=== PATIENT | male | born 1990 | race Caucasian/White ===

== ENCOUNTER 2024-10-17 23:20 | Emergency (ER) | payer OTHER ==
[~2024-10-17] VITALS: Ht 175.3 cm; Wt 77.0 kg
--- NOTE | 2024-10-18 00:07 | ED.PDOC ---
History of Present Illness HPI Comments 34-year-old male with unknown past medical history, presents to ED by ambulance for drug intoxication x2 hours. EMS reports that the patient was at [employer] and they received a call that patient was dancing between the aisles. EMS reported that the patient was complaining of abdominal pain. They report that they could not get any more information from the patient. Patient did not admit to any drug use, however appears intoxicated. EMS states that vitals have been stable. There has been no vomiting. Patient has not exhibited any signs of pain. Patient is not giving information during my exam. EMS reports patient is homeless. Chief Complaint: Abdominal Pain Time Seen by MD: 23:51 Reviewed Notes: Nurses Notes, Medications, Allergies Allergies: Coded Allergies: NO KNOWN ALLERGIES (Unverified , 10/18/24) Home Meds Active Scripts Azithromycin (Azithromycin) 250 Mg Tab, 250 MG PO DAILY MDD 500 for 5 Days, #6 TAB 0 Refills 2 TABLETS ORALLY ON DAY ONE, THEN 1 TABLET ORALLY DAILY FOR 4 DAYS Prov:YEYO QUINTANILLA [facility] 10/18/24 Mode of Arrival: EMS Past Medical History PAST MEDICAL HISTORY: Unobtainable Surgical History: Unobtainable Family History Family History: Unobtainable Social History Smoker: Unobtainable Drugs: Unobtainable Lives In: Unobtainable Constitutional: denies: chills, diaphoresis, fatigue, fever, malaise, sweats, weakness, others EENTM: denies: blurred vision, double vision, ear bleeding, ear discharge, ear drainage, ear pain, ear ringing, eye pain, eye redness, hearing loss, mouth pain, mouth swelling, nasal discharge, nose bleeding, nose congestion, nose pain, photophobia, tearing, throat pain, throat swelling, voice changes, others Gastrointestinal: reports: abdominal pain Unable to Obtain due to: Other (Patient not answering questions) Physical Exam General Appearance: No Apparent Distress (Patient appears to be intoxicated during exam, not answering any questions, however maintaining airway.), Normal HEENT: PERRL/EOMI Neck: Full Range of Motion, Non-Tender, Normal, Normal Inspection Respiratory: Chest Non-Tender, Lungs Clear, No Accessory Muscle Use, No Respiratory Distress, Normal Breath Sounds Cardiovascular: No Edema, No JVD, No Murmur, No Gallop, Normal Peripheral Pulse s, Regular Rate/Rhythm Breast Exam: Deferred Gastrointestinal: No Organomegaly, Non Tender (No right lower quadrant tenderness. No McBurney's point tenderness. No rebound tenderness.), No Pulsatile Mass, Normal Bowel Sounds, Soft Genitalia: Deferred Pelvic: Deferred Rectal: Deferred Extremities: No calf tenderness, Normal capillary refill, Normal inspection, Normal range of motion, Non-tender, No pedal edema Musculoskeletal : Apperance: Normal Neurologic: NOT DONE Cerebellar Function: NOT DONE Reflexes: NOT DONE Skin: Dry, Normal Color, Warm Lymphatic: No Adenopathy Was a procedure done? Was a procedure done?: No Differential Dx Considerations may include: Drug intoxication, drug overdose X-Ray, Labs, Meds, VS Vital Signs Date Time Temp Pulse Resp B/P (MAP) Pulse Ox O2 Delivery O2 Flow Rate FiO2 10/18/24 01:32 98.0 104 19 99/77 (84) 95 98.0 10/18/24 01:32 104 19 95 Room Air 10/17/24 23:20 98.1 95 20 128/70 (89) 95 98.1 Lab Test 10/18/24 00:23 Range/Units White Blood Count 14.7 H 4.4-10.8 10^3/uL Red Blood Count 4.39 L 4.5-5.90 10^6/uL Hemoglobin 12.6 L 13.5-17.5 g/dL Hematocrit 36.6 L 41.0-53.0 % Mean Corpuscular Volume 83.3 80.0-100.0 fL Mean Corpuscular Hemoglobin 28.6 28.0-32.0 pg Mean Corpuscular Hemoglobin Concent 34.4 32.0-36.0 g/dL Red Cell Distribution Width 13.9 11.8-14.3 % Platelet Count 431 140-450 10^3/uL Mean Platelet Volume 6.7 L 6.9-10.8 fL Neutrophils (%) (Auto) 79.1 37.0-80.0 % Lymphocytes (%) (Auto) 9.2 L 10.0-50.0 % Monocytes (%) (Auto) 11.2 0.0-12.0 % Eosinophils (%) (Auto) 0.0 0.0-7.0 % Basophils (%) (Auto) 0.5 0.0-2.0 % Neutrophils # (Auto) 11.6 H 1.6-8.6 10 ^3/uL Lymphocytes # (Auto) 1.4 0.4-5.4 10 ^3/uL Monocytes # (Auto) 1.6 H 0-1.3 10 ^3/uL Eosinophils # (Auto) 0 0-0.8 10 ^3/uL Basophils # (Auto) 0.1 0-0.2 10 ^3/uL Nucleated Red Blood Cells 0.0 % Sodium Level 134 L 136-145 mmol/L Potassium Level 4.1 3.5-5.1 mmol/L Chloride Level 100 98-107 mmol/L Carbon Dioxide Level 21 20-31 mmol/L Anion Gap 13 5-15 Blood Urea Nitrogen 22 9-23 mg/dL Creatinine 0.91 0.700-1.30 mg/dL Glomerular Filtration Rate Calc 112 >90 mL/min BUN/Creatinine Ratio 24.2 H 10.0-20.0 Serum Glucose 107 H 74-106 mg/dL Calcium Level 10.5 H 8.7-10.4 mg/dL Total Bilirubin 0.7 0.2-1.0 mg/dL Aspartate Amino Transferase (AST) 179 H 13-40 U/L Alanine Aminotransferase (ALT) 234 H 7-40 U/L Alkaline Phosphatase 169 H 46-116 U/L Total Protein 8.2 5.7-8.2 g/dL Albumin 5.0 H 3.2-4.8 g/dL Lipase 25 12-53 U/L Plasma/Serum Blood Alcohol < 3.0 <10 mg/dL X-Ray, Labs, Meds, VS Comment CT Abd/Pelv IMPRESSION: 1. No acute abdominal or pelvic findings. 2. Multifocal pneumonia seen throughout the left lower lobe and right middle lobe. MDM: Patient with history as above presented with abdominal pain. History obtained from EMS. Patient was nontoxic, stable, afebrile, ambulatory, no acute distress. Exam as above. Labs reviewed.CBC showed leukocytosis of 14.7. Mild hyponatremia noted at 134. AST elevated at 179. ALT elevated at 234. Alkaline phosphatase elevated at 169. Lipase within normal limits. Blood alcohol levels negative. Patient has not given urine in the ED. Independently reviewed imaging. CT abdomen/pelvis showed no acute abdominal findings. There was incidental multifocal pneumonia seen in the left lower lobe and right middle lobe. Reviewed external records. All findings were discussed with the patient. Differential diagnosis considered. Overall presentation is consistent with pneumonia. Low suspicion for appendicitis, bowel obstruction, alcohol intoxication. Patient was reevaluated and vital signs were reviewed. On re-evaluation, patient was more responsive and appeared less intoxicated. He is still denying any drug use today. He reports rib pain rather than abdominal pain. Patient was prescribed antibiotics to cover for pneumonia. Disposition: Discussed the need to follow up diagnostics, including incidental findings. Discharged the patient with instructions to obtain outpatient follow up in 1-2 days of today's symptoms and findings, with strict return precautions if patient develops new or worsening symptoms. This medical document was created using the [employer] dictation system. Although this document has been carefully reviewed, there may still be some phonetic and typographical errors, which are due to imperfections of the software program, and do not reflect any compromise in the patient's medical care. Time of 1ST Reevaluation: 02:16 Reevaluation 1ST: Improved Time of 2ND Reevaluation: 02:32 Reevaluation 2ND: Improved Patient Education/Counseling: Diagnosis, Treatment, Prognosis, Need For Follow Up Family Education/Counseling: No Family Present Departure 1 Departure Time of Disposition: 02:33 Impression: Primary Impression: Pneumonia Qualified Codes: J18.9 - Pneumonia, unspecified organism Disposition: 01 HOME / SELF CARE / HOMELESS Condition: Fair e-Prescriptions Azithromycin (Azithromycin) 250 Mg Tab 250 MG PO DAILY MDD 500 for 5 Days, #6 TAB 0 Refills 2 TABLETS ORALLY ON DAY ONE, THEN 1 TABLET ORALLY DAILY FOR 4 DAYS Prov: YEYO QUINTANILLA 10/18/24 Critical Care Note Critical Care Time?: No Stability Stability form required: No Heart Score Heart Score: Heart Score Response (Comments) Value History N/A 0 EKG N/A 0 Age N/A 0 Risk Factors N/A 0 Troponin N/A 0 Total 0 YEYO QUINTANILLA Oct 18, 2024 00:07
[2024-10-18 00:55] LABS: Basophils # (auto) 0.1 10 ^3/uL (0-0.2); Basophils % (auto) 0.5 % (0.0-2.0); Eosinophils # (auto) 0 10 ^3/uL (0-0.8); Hematocrit 36.6 % (41.0-53.0); Hemoglobin 12.6 g/dL (13.5-17.5); Lymphocytes # (auto) 1.4 10 ^3/uL (0.4-5.4); Lymphocytes % (auto) 9.2 % (10.0-50.0); Mean Corpuscular Hemoglobin 28.6 pg (28.0-32.0); Mean Corpuscular Hgb Conc. 34.4 g/dL (32.0-36.0); Mean Corpuscular Volume 83.3 fL (80.0-100.0); Monocytes # (auto) 1.6 10 ^3/uL (0-1.3); Monocytes % (auto) 11.2 % (0.0-12.0); Neutrophils # (auto) 11.6 10 ^3/uL (1.6-8.6); Neutrophils % (auto) 79.1 % (37.0-80.0); Platelet Count (auto) 431 10^3/uL (140-450); Red Blood Cells 4.39 10^6/uL (4.5-5.90); Red Cell Distribution Width 13.9 % (11.8-14.3); White Blood Cell 14.7 10^3/uL (4.4-10.8)
[2024-10-18 00:57] LABS: Anion Gap 13 (5-15); BUN/Creatinine Ratio 24.2 (10.0-20.0); Bilirubin, Total 0.7 mg/dL (0.2-1.0); Blood Urea Nitrogen 22 mg/dL (9-23); Carbon Dioxide 21 mmol/L (20-31); Chloride 100 mmol/L (98-107); Potassium 4.1 mmol/L (3.5-5.1); Total Protein 8.2 g/dL (5.7-8.2)
[2024-10-18 01:00] LABS: Alanine Aminotransferase 234 U/L (7-40); Alkaline Phosphatase 169 U/L (46-116); Aspartate Aminotransferase 179 U/L (13-40); Calcium 10.5 mg/dL (8.7-10.4); Glucose 107 mg/dL (74-106); Sodium 134 mmol/L (136-145)
[2024-10-18 01:32] VITALS: BP 99/77; PULSE 104; RESP 19; TEMP 98
[2024-10-18 01:37] LABS: Blood Alcohol < 3.0 mg/dL (<10)
--- NOTE | 2024-10-18 01:56 | DVH ---
Exam: CT CT AB PEL WO CON-NO ORAL OR IV History: Abdominal pain, elevated liver enzymes Comparison Study: None Technique: Multidetector spiral CT of the abdomen was performed from lung bases to pubic symphysis. Imaging was performed without IV contrast. Axial, coronal and sagittal multiplanar reformats were ob tained from the axial data set by the technologist. Radiation Dose : 1. Abdomen/Pelvis: CTDIvol 7.58 mGy, DLP 395.51 mGy*cm. Findings: Evaluation of solid organs is limited due to lack of intravenous contrast use. Lung Bases: Multifocal pneumonia seen throughout the left lower lobe and right middle lobe Liver: The liver is normal in size. No focal lesions. Gallbladder and Biliary Tree: Unremarkable Spleen: Unremarkable Pancreas: The pancreas is grossly normal in appearance. Adrenal Glands: Unremarkable Kidneys: Kidneys are grossly normal without calculi or hydronephrosis. Bladder: Grossly unremarkable for degree of distention. Bowel: The stomach is grossly normal in appearance. Small bowel and colon are normal in caliber and d istribution. The appendix is not visualized; however, no secondary findings of acute appendicitis id entified. Ascites: Absent Lymphadenopathy: No mesenteric, retroperitoneal or periportal lymphadenopathy. Abdominal Wall and Mesentery: Unremarkable. Vasculature: The visualized abdominal aorta is normal in size and caliber. Evaluation of abdominal a nd pelvic vessels is limited due to lack of intravenous contrast. Pelvic Organs: Unremarkable Musculoskeletal: No aggressive focal bony lesions, acute fractures or dislocation. IMPRESSION: 1. No acute abdominal or pelvic findings. 2. Multifocal pneumonia seen throughout the left lower lobe and right middle lobe. Radiation optimization: All CT scans at this facility use at least one of these dose optimization serge hniques: automated exposure control mA and/or kV adjustment per patient size (includes targeted exam s where dose is matched to clinical indication) or iterative reconstruction.
[2024-10-18] MEDS ORDERED: AZIT-43 PO (02:16)
[2024-10-18 02:50] VITALS: O2SAT 98
== END 2024-10-18 04:48 | disposition home or self-care (01) ==
LOC: ER 23:20 → EDBD 23:20 → ER 10-18 04:47
DX: J18.9 Pneumonia, unspecified organism (principal); T50.905A Adverse effect of unspecified drugs, medicaments and biological substances, initial encounter; Z59.00 Homelessness unspecified; Z79.2 Long term (current) use of antibiotics; Y92.89 Other specified places as the place of occurrence of the external cause
CPT/HCPCS: 36415; 74176; 80053; 80320; 83690; 85025

== ENCOUNTER 2024-10-18 05:44 | Emergency (ER) | payer OTHER ==
[~2024-10-18 05:44] MED LIST: AZIT-43 PO
== END 2024-10-18 06:22 | disposition left against medical advice (07) ==
LOC: ER 05:44
DX: R53.1 Weakness (principal); Z53.21 Procedure and treatment not carried out due to patient leaving prior to being seen by health care provider

== ENCOUNTER 2024-10-19 10:56 | Emergency (ER) | payer OTHER ==
[~2024-10-19] VITALS: Ht 180.3 cm; Wt 58.8 kg
--- NOTE | 2024-10-19 11:20 | ED.PDOC ---
Psychiatric HPI Comments 34 y/o M, presents to the ED for CC of mental health. Patient states, that has been having auditory hallucinations. Patient relays, that he is currently homeless. Patient denies VH, HI,or SI. Patient not answering questions at this time no other medical history, symptoms, or modifiers obtainable. Chief Complaint: Mental Health Time Seen by MD: 11:30 Primary Care Provider: none Reviewed Notes: Nurses Notes, Medications, Allergies Information Source: Patient Mode of Arrival: Ambulatory Severity of Pain: None Severity of Mental Status: Moderate Severity of Symptoms: Moderate Timing: Hours Prehospital treatment: None Presents with: None Ingestion: None Circumstance: None Current substance abuse: None Stressors: None History of: None Quality: Hallucinations Location: None Location of pain or injury: None Associated signs and symptoms: Hallucinations Past Medical History PAST MEDICAL HISTORY: Unobtainable Surgical History: Unobtainable Family History Family History: Unobtainable Social History Smoker: Unobtainable Drugs: Unobtainable Lives In: Unobtainable Constitutional: denies: chills, diaphoresis, fatigue, fever, malaise, sweats, weakness, others EENTM: denies: blurred vision, double vision, ear bleeding, ear discharge, ear drainage, ear pain, ear ringing, eye pain, eye redness, hearing loss, mouth pain, mouth swelling, nasal discharge, nose bleeding, nose congestion, nose pain, photophobia, tearing, throat pain, throat swelling, voice changes, others Respiratory: denies: cough, hemoptysis, orthopnea, SOB at rest, shortness of breath, SOB with excertion, stridor, wheezing, others Cardiovascular: denies: chest pain, dizzy spells, diaphoresis, Dyspnea on exertion, edema, irregular heart beat, left arm pain, lightheadedness, palpitations, PND, syncope, others Gastrointestinal: denies: abdomen distended, abdominal pain, blood streaked bowels, constipated, diarrhea, dysphagia, difficulty swallowing, hematemesis, melena, nausea, poor appetite, poor fluid intake, rectal bleeding, rectal pain, vomiting, others Genitourinary: denies: burning, dysuria, flank pain, frequency, hematuria, incontinence, penile discharge, penile sore, pain, testicle pain, testicle swelling, urgency, others Neurological: denies: dizziness, fainting, headache, left sided numbness, left sided weakness, numbness, paresthesia, pre-existing deficit, right sided numbness, right sided weakness, seizure, speech problems, tingling, tremors, weakness, others Musculoskeletal: denies: back pain, gout, joint pain, joint swelling, muscle pain, muscle stiffness, neck pain, others Integumetry: denies: bruises, change in color, change in hair/nails, dryness, laceration, lesions, lumps, rash, wounds, others Allergic/Immunocompromised: denies: Difficulty Healing, Frequent Infections, Hives, Itching, others Hematologic/Lymphatic: denies: anemia, blood clots, easy bleeding, easy bruising, swollen glands, others Endocrine: denies: excessive hunger, excessive sweating, excessive thirst, excessive urination, flushing, intolerance to cold, intolerance to heat, unexplained weight gain, unexplained weight loss, others Psychiatric: reports: others (hallicinations); denies: anxiety, bipolar disorder, depression, hopeless, panic disorder, schizophrenia, sleepless, suicidal Physical Exam General Appearance: Moderate Distress HEENT: Normal ENT Inspection, Pharynx Normal, TMs Normal Neck: Full Range of Motion, Non-Tender, Normal, Normal Inspection Respiratory: Chest Non-Tender, Lungs Clear, No Accessory Muscle Use, No Respiratory Distress, Normal Breath Sounds Cardiovascular: No Edema, No JVD, No Murmur, No Gallop, Normal Peripheral Pulses, Regular Rate/Rhythm Breast Exam: Deferred Gastrointestinal: No Organomegaly, Non Tender, No Pulsatile Mass, Normal Bowel Sounds, Soft Genitalia: Deferred Pelvic: Deferred Rectal: Deferred Extremities: No calf tenderness, Normal capillary refill, Normal inspection, Normal range of motion, Non-tender, No pedal edema Musculoskeletal : Apperance: Normal Neurologic: Alert, mushroom spawn maker II-XII nml as Tested, No Motor Deficits, Normal Affect, Normal Mood, No Sensory Deficits Cerebellar Function: Normal Reflexes: Normal Skin: Dry, Normal Color, Warm Peripheral Pulses: 3+ Radial (R), 3+ Radial (L) Lymphatic: No Adenopathy Was a procedure done? Was a procedure done?: No Psych Differential Dx Intoxication Differential Dx: Alcohol Withdraw Syndrome, Hallucinations, Dehydration, Depression, Drug-Induced Psychosis, Intoxication, Substance Abuse Disorder X-Ray, Labs, Meds, VS Vital Signs Date Time Temp Pulse Resp B/P (MAP) Pulse Ox O2 Delivery O2 Flow Rate FiO2 10/19/24 11:25 97.3 89 16 114/76 (89) 94 97.3 10/19/24 11:25 78 16 94 Room Air* 0 21 10/19/24 11:10 98.3 89 19 114/76 (89) 9 98.3 Patient alert. Unable to get a good history from the patient. Hearing voices. Vitals stable. No sign of any injury. Medically cleared. Psychiatric evaluation. Continue to monitor. Time of 1ST Reevaluation: 12:00 Reevaluation 1ST: Unchanged Patient Education/Counseling: Diagnosis, Treatment Family Education/Counseling: No Family Present Departure 1 Departure Time of Disposition: 14:27 Impression: Primary Impression: Psychosis Qualified Codes: F29 - Unspecified psychosis not due to a substance or known physiological condition Disposition: 30 STILL A PATIENT Condition: Good Critical Care Note Critical Care Time?: No Stability Stability form required: No Heart Score Heart Score: Heart Score Response (Comments) Value History N/A 0 EKG N/A 0 Age N/A 0 Risk Factors N/A 0 Troponin N/A 0 Total 0 I personally scribed for SHAHLA HUNTER MD ([email or web address]) on 10/19/24 at 11:20. Electronically submitted by Cara Guthrie ([email or web address]). I personally scribed for SHAHLA HUNTER MD ([email or web address]) on 10/19/24 at 11:38. Electronically submitted by Cara Guthrie ([email or web address]). SHAHLA HUNTER MD Oct 19, 2024 11:20
[2024-10-19 11:25] VITALS: PULSE 78; RESP 16; O2SAT 94
[2024-10-19 19:41] LABS: Cannabinoid Screen, Urine Pos (NEGATIVE)
--- NOTE | 2024-10-19 19:43 | DVHINCON2 ---
Date of Service if different f: Oct 19, 2024 Consultation ([place]) Labs Laboratory Tests Test 10/19/24 19:00 Appetite: Good Appearance: Stated age, Disheveled Psychomotor activity: Restless Behavioral: [place], Impulsive Eye contact: Limited Speech: Confused, Mumbled Affect: Blunted Mood: Neutral Thought processes: Tangential, Disorganized Thought content: Paranoid, Hallucinations (auditory) Suicidal ideations: Present (passive) Homicidal ideations: Absent Orientation: Person, Place, Time, Situation Memory intact: Recent Intellect: Average Abstractability: Marginal Concentration: Poor Attention: Poor Judgement: Limited Insight: Poor Vitals Vital Signs Date Time Temp Pulse Resp B/P (MAP) Pulse Ox O2 Delivery O2 Flow Rate FiO2 10/19/24 11:25 97.3 89 16 114/76 (89) 94 97.3 10/19/24 11:25 Room Air* 0 21 Medication adjusted: Yes Diagnosis: unspecified psychosis r/o substance-induced Plan : This is a 34-year-old male with unknown prior history, presents to ED reporting auditory hallucinations, visibly preoccupied having trouble focusing on interview He is reporting suicidal thoughts denies plan, also reports thoughts of people controlling his body Recommend zyprexa 10mg po x1 re-eval Am V inpatient vol transfer. History of Present Illness Reason for Consult : suicidal ideation HPI : This is a 34-year-old male with unknown prior psychiatric history, self presents to ED reporting suicidal ideation Patient is evaluated via telepsychiatry, he reports auditory hallucination but not providing details of contents. He is often mumbling and trouble focusing and answering questions. He reports not feeling clear-minded, homeless for over 2 years. He reports having suicidal ideation, but no plan reported. He does not respond to any recent triggers for SI. He denies homicidal ideation. He denies visual hallucinations. He has periods being drowsy then wakes up, reporting "someone on the computer is controlling my hands." He stops responding the questions and preoccupied. Past Psychiatric History : He reports prior psych admissions, holds. He does not answer if had prior suicide attempts. He has hx of psychiatric medications, mentions Abilify, no other details provided. Past Medical History : He denies Social History : he reports homelessness for the past 2.5 years. He denies using substances but has not provided specimen for urine drug screen. Other history is unknown as patient is not responding. RUDI MCCARTHY DNP Oct 19, 2024 19:43
[2024-10-19 19:48] LABS: Barbiturate Scree,Urine Neg (NEGATIVE); Benzodiazephine Screen, Urine Neg (NEGATIVE); Cocaine Screen, Urine Neg (NEGATIVE); Opiate Scree,Urine Neg (NEGATIVE); Phencyclidine Screen, Urine Neg (NEGATIVE)
[2024-10-19 21:10] LABS: Amphetamine Screen, Urine Pos (NEGATIVE)
[2024-10-20 09:56] VITALS: BP 97/51; TEMP 98.3
[2024-10-20 10:17] VITALS: PULSE 69; RESP 18; O2SAT 97
[2024-10-20] MEDS: OLANZapine 5 MG TAB PO ONE (10:54)
== END 2024-10-20 10:58 | disposition left against medical advice (07) ==
LOC: ER 10:56
DX: F29 Unspecified psychosis not due to a substance or known physiological condition (principal)
CPT/HCPCS: 80307

== ENCOUNTER 2024-10-20 19:04 | Emergency (ER) | payer OTHER ==
[~2024-10-20] VITALS: Ht 180.3 cm; Wt 66.9 kg
--- NOTE | 2024-10-20 19:35 | ED.PDOC ---
History of Present Illness HPI Comments 34-year-old male presents with a chief complaint of schizophrenia. Patient is rambling and not making coherent sense at this time. Patient is homeless and was seen here last night at this facility and was reluctant to answer any questions. Patient AMA'd after Publication Manager offered him resources for homeless shelters. Patient is still in green gown and has hospital blanket around him from this morning. No other symptoms or modifying factors present at this time. Time Seen by MD: 19:30 Primary Care Provider: none Reviewed Notes: Nurses Notes, Medications, Allergies Allergies: Coded Allergies: NO KNOWN ALLERGIES (Unverified , 10/18/24) Home Meds Active Scripts Azithromycin (Azithromycin) 250 Mg Tab, 250 MG PO DAILY MDD 500 for 5 Days, #6 TAB 0 Refills 2 TABLETS ORALLY ON DAY ONE, THEN 1 TABLET ORALLY DAILY FOR 4 DAYS Prov:YEYO QUINTANILLA [facility] 10/18/24 Information Source: Patient Mode of Arrival: Ambulatory Severity: Moderate Timing: Minutes Duration: Since onset Prehospital treatment: None Past Medical History PAST MEDICAL HISTORY: Schizophrenia Surgical History: Unknown Family History Family History: Unknown Social History Smoker: Unknown Alcohol: Unknown Drugs: Unknown Lives In: Homeless Constitutional: denies: chills, diaphoresis, fatigue, fever, malaise, sweats, weakness, others EENTM: denies: blurred vision, double vision, ear bleeding, ear discharge, ear drainage, ear pain, ear ringing, eye pain, eye redness, hearing loss, mouth pain, mouth swelling, nasal discharge, nose bleeding, nose congestion, nose pain, photophobia, tearing, throat pain, throat swelling, voice changes, others Respiratory: denies: cough, hemoptysis, orthopnea, SOB at rest, shortness of breath, SOB with excertion, stridor, wheezing, others Cardiovascular: denies: chest pain, dizzy spells, diaphoresis, Dyspnea on exertion, edema, irregular heart beat, left arm pain, lightheadedness, palpitations, PND, syncope, others Gastrointestinal: denies: abdomen distended, abdominal pain, blood streaked bowels, constipated, diarrhea, dysphagia, difficulty swallowing, hematemesis, melena, nausea, poor appetite, poor fluid intake, rectal bleeding, rectal pain, vomiting, others Genitourinary: denies: burning, dysuria, flank pain, frequency, hematuria, incontinence, penile discharge, penile sore, pain, testicle pain, testicle swelling, urgency, others Neurological: denies: dizziness, fainting, headache, left sided numbness, left sided weakness, numbness, paresthesia, pre-existing deficit, right sided numbness, right sided weakness, seizure, speech problems, tingling, tremors, weakness, others Musculoskeletal: denies: back pain, gout, joint pain, joint swelling, muscle pain, muscle stiffness, neck pain, others Integumetry: denies: bruises, change in color, change in hair/nails, dryness, laceration, lesions, lumps, rash, wounds, others Allergic/Immunocompromised: denies: Difficulty Healing, Frequent Infections, Hives, Itching, others Hematologic/Lymphatic: denies: anemia, blood clots, easy bleeding, easy bruising, swollen glands, others Endocrine: denies: excessive hunger, excessive sweating, excessive thirst, excessive urination, flushing, intolerance to cold, intolerance to heat, unexplained weight gain, unexplained weight loss, others Psychiatric: reports: schizophrenia; denies: anxiety, bipolar disorder, depression, hopeless, panic disorder, sleepless, suicidal, others All Other Systems: Reviewed and Negative Physical Exam General Appearance: Mild Distress HEENT: Normal ENT Inspection, Pharynx Normal, TMs Normal Neck: Full Range of Motion, Non-Tender, Normal, Normal Inspection Respiratory: Chest Non-Tender, Lungs Clear, No Accessory Muscle Use, No Respiratory Distress, Normal Breath Sounds Cardiovascular: No Edema, No JVD, No Murmur, No Gallop, Normal Peripheral Pulses, Regular Rate/Rhythm Breast Exam: Deferred Gastrointestinal: No Organomegaly, Non Tender, No Pulsatile Mass, Normal Bowel Sounds, Soft Genitalia: Deferred Pelvic: Deferred Rectal: Deferred Extremities: No calf tenderness, Normal capillary refill, No pedal edema Musculoskeletal : Apperance: Normal Neurologic: dough scaler and mixer II-XII nml as Tested, Motor Weakness, Normal Affect, Normal Mood, No Sensory Deficits Cerebellar Function: Unable to Test Reflexes: Normal Skin: Dry, Normal Color, Warm Lymphatic: No Adenopathy Was a procedure done? Was a procedure done?: No Differential Dx Considerations may include: Generalized weakness, electrolyte imbalance X-Ray, Labs, Meds, VS The patient was now medically cleared and it was going to be evaluated by the psychiatrist Time of 1ST Reevaluation: 20:00 Reevaluation 1ST: Unchanged Patient Education/Counseling: Diagnosis, Treatment, Prognosis Family Education/Counseling: No Family Present Departure 1 Departure Time of Disposition: 19:42 Impression: Primary Impression: Psychosis Qualified Codes: F29 - Unspecified psychosis not due to a substance or known physiological condition Disposition: 30 STILL A PATIENT Condition: Fair Critical Care Note Critical Care Time?: No Stability Stability form required: No Heart Score Heart Score: Heart Score Response (Comments) Value History N/A 0 EKG N/A 0 Age N/A 0 Risk Factors N/A 0 Troponin N/A 0 Total 0 I personally scribed for ROSE NUÑEZ MD ([email or web address]) on 10/20/24 at 19:35. Electronically submitted by Phillip Parry ([email or web address]). ROSE NUÑEZ MD Oct 20, 2024 19:35
[2024-10-20 19:44] VITALS: BP 109/73; PULSE 82; RESP 18; TEMP 98.4; O2SAT 98
== END 2024-10-21 06:09 | disposition left against medical advice (07) ==
LOC: ER 19:07
DX: F29 Unspecified psychosis not due to a substance or known physiological condition (principal); F20.9 Schizophrenia, unspecified; Z59.00 Homelessness unspecified; Z79.2 Long term (current) use of antibiotics

== ENCOUNTER 2024-10-21 12:55 | Emergency (ER) | payer OTHER ==
[~2024-10-21] VITALS: Ht 180.3 cm; Wt 66.3 kg
[2024-10-21 13:23] VITALS: BP 108/62; PULSE 80; RESP 20; TEMP 98.7; O2SAT 97
== END 2024-10-21 16:12 | disposition left against medical advice (07) ==
LOC: ER 12:55
DX: R44.0 Auditory hallucinations (principal); R05.9 Cough, unspecified; Z53.21 Procedure and treatment not carried out due to patient leaving prior to being seen by health care provider

== ENCOUNTER 2024-10-24 12:36 | Emergency (ER) | payer OTHER ==
[~2024-10-24] VITALS: Ht 152.4 cm; Wt 63.0 kg
--- NOTE | 2024-10-24 13:25 | ED.PDOC ---
Psychiatric HPI Comments 34 year old male presents to the ED with chief complaint of anxiety and hallucinations. Patient reports that he has been experiencing anxiety with associated hallucinations and delusions that people want to murder him for the past 2.5 years. Patient relays that he last used methamphetamine 2 days ago. Patient denies any SI, HI, or VH. Chief Complaint: Anxiety Time Seen by MD: 13:21 Primary Care Provider: none Reviewed Notes: Nurses Notes, Medications, Allergies Information Source: Patient Mode of Arrival: EMS Severity: Able to Care for Self, Able to Control Self Severity of Pain: None Severity of Mental Status: Moderate Severity of Symptoms: Moderate Timing: Months Duration: Since onset Prehospital treatment: None Presents with: Anxiety, Bizarre Behavior Ingestion: None Circumstance: Causing a Disturbance Current substance abuse: Amphetamines Stressors: None History of: Anxiety, Schizophrenia Associated signs and symptoms: Anxiety, Hallucinations, Amphetamines Past Medical History PAST MEDICAL HISTORY: Schizophrenia Surgical History: Unknown Family History Family History: Unknown Social History Smoker: Unknown Alcohol: Unknown Drugs: Methamphetamine Lives In: Homeless Constitutional: denies: chills, diaphoresis, fatigue, fever, malaise, sweats, weakness, others EENTM: denies: blurred vision, double vision, ear bleeding, ear discharge, ear drainage, ear pain, ear ringing, eye pain, eye redness, hearing loss, mouth pain , mouth swelling, nasal discharge, nose bleeding, nose congestion, nose pain, photophobia, tearing, throat pain, throat swelling, voice changes, others Respiratory: denies: cough, hemoptysis, orthopnea, SOB at rest, shortness of breath, SOB with excertion, stridor, wheezing, others Cardiovascular: denies: chest pain, dizzy spells, diaphoresis, Dyspnea on exertion, edema, irregular heart beat, left arm pain, lightheadedness, palpitations, PND, syncope, others Gastrointestinal: denies: abdomen distended, abdominal pain, blood streaked bowels, constipated, diarrhea, dysphagia, difficulty swallowing, hematemesis, melena, nausea, poor appetite, poor fluid intake, rectal bleeding, rectal pain, vomiting, others Genitourinary: denies: burning, dysuria, flank pain, frequency, hematuria, incontinence, penile discharge, penile sore, pain, testicle pain, testicle swelling, urgency, others Neurological: denies: dizziness, fainting, headache, left sided numbness, left sided weakness, numbness, paresthesia, pre-existing deficit, right sided numbness, right sided weakness, seizure, speech problems, tingling, tremors, weakness, others Musculoskeletal: denies: back pain, gout, joint pain, joint swelling, muscle pain, muscle stiffness, neck pain, others Integumetry: denies: bruises, change in color, change in hair/nails, dryness, laceration, lesions, lumps, rash, wounds, others Allergic/Immunocompromised: denies: Difficulty Healing, Frequent Infections, Hives, Itching, others Hematologic/Lymphatic: denies: anemia, blood clots, easy bleeding, easy bruising, swollen glands, others Endocrine: denies: excessive hunger, excessive sweating, excessive thirst, excessive urination, flushing, intolerance to cold, intolerance to heat, unexplained weight gain, unexplained weight loss, others Psychiatric: reports: anxiety, schizophrenia; denies: bipolar disorder, depression, hopeless, panic disorder, sleepless, suicidal, others All Other Systems: Reviewed and Negative Physical Exam General Appearance: Moderate Distress, Normal HEENT: Normal ENT Inspection, PERRL/EOMI Neck: Full Range of Motion, Non-Tender, Normal, Normal Inspection Respiratory: Chest Non-Tender, Lungs Clear, No Accessory Muscle Use, No Respiratory Distress, Normal Breath Sounds Cardiovascular: No Edema, No JVD, No Murmur, No Gallop, Normal Peripheral Pulses, Regular Rate/Rhythm Breast Exam: Deferred Gastrointestinal: No Organomegaly, Non Tender, No Pulsatile Mass, Normal Bowel Sounds, Soft Genitalia: Deferred Pelvic: Deferred Rectal: Deferred Extremities: No calf tenderness, Normal capillary refill, Normal inspection, Normal range of motion, Non-tender, No pedal edema Musculoskeletal : Apperance: Normal Neurologic: Alert, processing engineer II-XII nml as Tested, No Motor Deficits, Normal Affect, Normal Mood, No Sensory Deficits Cerebellar Function: NOT DONE Reflexes: NOT DONE Skin: Dry, Normal Color, Warm Peripheral Pulses: 3+ Radial (R), 3+ Radial (L) Lymphatic: No Adenopathy Was a procedure done? Was a procedure done?: No Psych Differential Dx Psych. Differential Dx: Anxiety, Schizoprenia X-Ray, Labs, Meds, VS Vital Signs Date Time Temp Pulse Resp B/P (MAP) Pulse Ox O2 Delivery O2 Flow Rate FiO2 10/24/24 12:48 97.6 70 18 127/78 (94) 99 97.6 Patient alert. Anxious. Denies suicidal or homicidal ideation. Vitals stable. Answering questions. Abdomen is soft nontender. No sign of any injuries. Was given Ativan. Explained to the patient. Was told to follow up with his primary care physician. Was told to come back if there is any problem. Time of 1ST Reevaluation: 14:21 Reevaluation 1ST: Improved Patient Education/Counseling: Diagnosis, Treatment Family Education/Counseling: No Family Present Additional Information Previous visit documents reviewed: The following tests were ordered, and results were reviewed by me: Additional Information was gathered from interviewing the following independent historians: I reviewed and agreed with the following test results read by other providers: I discussed treatment and results with medical personnel and: Patient Comprehensive systems review obtained and negative except for what is stated in the HPI. Departure 1 Departure Time of Disposition: 13:59 Impression: Primary Impression: Anxiety Disposition: 01 HOME / SELF CARE / HOMELESS Condition: Good Discharged With: Self Critical Care Note Critical Care Time?: No Stability Stability form required: No Heart Score Heart Score: Heart Score Response (Comments) Value History N/A 0 EKG N/A 0 Age N/A 0 Risk Factors N/A 0 Troponin N/A 0 Total 0 I personally scribed for SHAHLA HUNTER MD ([email or web address]) on 10/24/24 at 13:25. Electronically submitted by Erasmo Parisi ([email or web address]). SHAHLA HUNTER MD Oct 24, 2024 13:25
[2024-10-24] MEDS: LORazepam 0.5 MG TAB PO ONE (14:22)
[2024-10-24 14:29] VITALS: BP 127/78; PULSE 70; RESP 18; TEMP 97.6; O2SAT 99
== END 2024-10-24 14:30 | disposition home or self-care (01) ==
LOC: EDBD 12:36 → ER 12:36
DX: F41.9 Anxiety disorder, unspecified (principal); F20.9 Schizophrenia, unspecified; F15.10 Other stimulant abuse, uncomplicated; Z59.00 Homelessness unspecified

== ENCOUNTER 2024-10-25 12:19 | Emergency (ER) | payer OTHER ==
[~2024-10-25] VITALS: Ht 167.6 cm; Wt 65.0 kg
[2024-10-25 12:24] VITALS: BP 112/61; PULSE 60; RESP 15; TEMP 97.8; O2SAT 99
--- NOTE | 2024-10-25 12:31 | ED.PDOC ---
History of Present Illness HPI Comments 34 year old male brought in via EMS presents to the ED with a chief complaint of anxiety onset today. Per EMS, patient was found at a bus stop at [facility], was feeling anxious, was experiencing chest pain, generalized weakness, numbness of extremities. Patient was seen here yesterday for anxiety, is requesting same medication he received yesterday. PMHx anxiety, schizophrenia. Denies dizziness, nausea, vomiting, diarrhea, constipation, shortness of breath. No other symptoms or modifying factors present at this time. Chief Complaint: Body Pain Time Seen by MD: 12:25 Primary Care Provider: none Reviewed Notes: Medications, Allergies Allergies: Coded Allergies: NO KNOWN ALLERGIES (Unverified , 10/18/24) Home Meds Active Scripts Azithromycin (Azithromycin) 250 Mg Tab, 250 MG PO DAILY MDD 500 for 5 Days, #6 TAB 0 Refills 2 TABLETS ORALLY ON DAY ONE, THEN 1 TABLET ORALLY DAILY FOR 4 DAYS Prov:YEYO QUINTANILLA LAVERNE PAC 10/18/24 Information Source: Patient, Emergency Med Personnel Mode of Arrival: EMS Severity: Moderate Timing: Hours Duration: Since onset Prehospital treatment: None Past Medical History PAST MEDICAL HISTORY: Anxiety, Schizophrenia Surgical History: Unknown Family History Family History: Unknown Social History Smoker: Unknown Alcohol: Unknown Drugs: Methamphetamine Lives In: Homeless Constitutional: denies: chills, diaphoresis, fatigue, fever, malaise, sweats, weakness, others EENTM: denies: blurred vision, double vision, ear bleeding, ear discharge, ear drainage, ear pain, ear ringing, eye pain, eye redness, hearing loss, mouth pain, mouth swelling, nasal discharge, nose bleeding, nose congestion, nose pain, photophobia, tearing, throat pain, throat swelling, voice changes, others Respiratory: denies: cough, hemoptysis, orthopnea, SOB at rest, shortness of breath, SOB with excertion, stridor, wheezing, others Cardiovascular: reports: chest pain; denies: dizzy spells, diaphoresis, Dyspnea on exertion, edema, irregular heart beat, left arm pain, lightheadedness, palpitations, PND, syncope, others Gastrointestinal: denies: abdomen distended, abdominal pain, blood streaked bowels, constipated, diarrhea, dysphagia, difficulty swallowing, hematemesis, melena, nausea, poor appetite, poor fluid intake, rectal bleeding, rectal pain, vomiting, others Genitourinary: denies: burning, dysuria, flank pain, frequency, hematuria, incontinence, penile discharge, penile sore, pain, testicle pain, testicle swelling, urgency, others Neurological: reports: numbness; denies: dizziness, fainting, headache, left sided numbness, left sided weakness, paresthesia, pre-existing deficit, right sided numbness, right sided weakness, seizure, speech problems, tingling, tremors, weakness, others Musculoskeletal: reports: muscle pain; denies: back pain, gout, joint pain, joint swelling, muscle stiffness, neck pain, others Integumetry: denies: bruises, change in color, change in hair/nails, dryness, laceration, lesions, lumps, rash, wounds, others Allergic/Immunocompromised: denies: Difficulty Healing, Frequent Infections, Hives, Itching, others Hematologic/Lymphatic: denies: anemia, blood clots, easy bleeding, easy bruising, swollen glands, others Endocrine: denies: excessive hunger, excessive sweating, excessive thirst, excessive urination, flushing, intolerance to cold, intolerance to heat, unexplained weight gain, unexplained weight loss, others Psychiatric: reports: anxiety; denies: bipolar disorder, depression, hopeless, panic disorder, schizophrenia, sleepless, suicidal, others All Other Systems: Reviewed and Negative Physical Exam General Appearance: Moderate Distress, Normal HEENT: Normal ENT Inspection, Pharynx Normal, TMs Normal Neck: Full Range of Motion, Non-Tender, Normal, Normal Inspection Respiratory: Chest Non-Tender, Lungs Clear, No Accessory Muscle Use, No Respiratory Distress, Normal Breath Sounds Cardiovascular: No Edema, No JVD, No Murmur, No Gallop, Normal Peripheral Pulses, Regular Rate/Rhythm Breast Exam: Deferred Gastrointestinal: No Organomegaly, Non Tender, No Pulsatile Mass, Normal Bowel Sounds, Soft Genitalia: Deferred Pelvic: Deferred Rectal: Deferred Extremities: No calf tenderness, Normal capillary refill, Normal inspection, Normal range of motion, Non-tender, No pedal edema Musculoskeletal : Apperance: Normal Neurologic: Alert, heat set operator II-XII nml as Tested, No Motor Deficits, Normal Affect, Normal Mood, No Sensory Deficits Cerebellar Function: Normal Reflexes: Normal Skin: Dry, Normal Color, Warm Peripheral Pulses: 3+ Radial (R), 3+ Radial (L) Lymphatic: No Adenopathy Was a procedure done? Was a procedure done?: No Differential Dx Considerations may include: Anxiety X-Ray, Labs, Meds, VS Vital Signs Date Time Temp Pulse Resp B/P (MAP) Pulse Ox O2 Delivery O2 Flow Rate FiO2 10/25/24 12:24 97.8 60 15 112/61 (78) 99 97.8 10/25/24 12:22 53 Patient alert. No sign of any distress. Uses drugs. Vitals stable. Abdomen is soft nontender. No injuries. EKG reviewed does not show any acute changes. Reviewed his previous visit. Explained to the patient. Was told to follow up with his primary care physician. Was told come back if there is any problem. Time of 1ST Reevaluation: 12:55 Reevaluation 1ST: Improved Patient Education/Counseling: Diagnosis, Treatment, Prognosis Family Education/Counseling: No Family Present Departure 1 Departure Time of Disposition: 13:53 Impression: Primary Impression: Anxiety Disposition: 01 HOME / SELF CARE / HOMELESS Condition: Good Discharged With: Self Critical Care Note Critical Care Time?: No Stability Stability form required: No Heart Score Heart Score: Heart Score Response (Comments) Value History Slightly Suspicious 0 EKG Normal 0 Age <45 0 Risk Factors No known risk factors 0 Troponin Normal limit 0 Total 0 I personally scribed for SHAHLA HUNTER MD ([email or web address]) on 10/25/24 at 12:31. Electronically submitted by Viviana Dale ([email or web address]). SHAHLA HUNTER MD Oct 25, 2024 12:31
--- NOTE | 2024-10-25 14:29 | ECG ---
[facility] Test Date: 2024-10-25 Test Time: 12:22:09 Pat Name: XIANG GALVIN Department: ED Room: Gender: M Bee Farmer: addy : 1990 Requested By: EMERGENCY EMERGENCY Order Number: [id number] Reading MD: Samm Herbert Measurements Intervals Ferron Rate: 53 P: 99 OR: 117 QRS: 90 QRSD: 101 T: 81 QT: 464 QTc: 436 Interpretive Statements Sinus rhythm Borderline short OR interval Borderline right axis deviation Nonspecific T abnrm, anterolateral leads Electronically Signed On 10-27-2024 22:08:14 PDT by Samm Herbert Please click the below link to view image of tracing.
== END 2024-10-25 14:10 | disposition home or self-care (01) ==
LOC: EDBD 12:19 → ER 12:19
DX: F41.9 Anxiety disorder, unspecified (principal); F20.9 Schizophrenia, unspecified; F19.90 Other psychoactive substance use, unspecified, uncomplicated; Z59.00 Homelessness unspecified
CPT/HCPCS: 82947; 93005

== ENCOUNTER 2024-10-26 13:00 | Emergency (ER) | payer OTHER | END 2024-10-26 14:22 | disposition left against medical advice (07) | LOC: ER 13:00 | DX: R51.9 Headache, unspecified (principal); Z53.21 Procedure and treatment not carried out due to patient leaving prior to being seen by health care provider ==